=== PATIENT | female | born 1965 | race Caucasian/White ===

== ENCOUNTER 2023-07-16 18:36 | Observation (INO) ==
[2023-07-16] MEDS ORDERED: Lactated Ringers 1000 ml BAG 1,000 ML IV ONE (18:53)
[2023-07-16] MEDS ORDERED: Morphine 4 MG/ML VIAL (1 ml) IV ONE (18:53)
[2023-07-16 19:06] LABS: Hematocrit 39.2 % (35-45); Hemoglobin 13.6 g/dL (11.5-14.3); Mean Corpuscular Hemoglobin 32.8 pg (27-33); Mean Corpuscular Hgb Conc 34.8 g/dL (31-36); Mean Corpuscular Volume 94.2 fL (80-97); Mean Platelet Volume 10.7 fL (7.5-11.2); Platelet Count 130 10^3/uL (150-450); Red Blood Count 4.16 10^6/uL (3.63-4.92); Red Cell Distribution Width 12.5 % (12-17); White Blood Count 12.4 10^3/uL (3.8-11.8)
[2023-07-16 19:23] LABS: Albumin 4.1 g/dL (3.2-5.2); Albumin/Globulin Ratio 1.4 (1-3); C Reactive Protein 110.36 mg/L (<8.01); Calcium 8.8 mg/dL (8.6-10.3); Creatinine, Serum 0.76 mg/dL (0.51-0.95); Potassium 3.2 mmol/L (3.5-5.0); Total Bilirubin 0.9 mg/dL (0.2-1.0); Total Protein 7.1 g/dL (6.4-8.9); eGFR CKD-EPI 89.7 (>60)
[2023-07-16 19:27] LABS: ABS Basophils 0.1 10^3/uL (0.0-0.1); ABS Lymphocytes 0.5 10^3/uL (1.0-4.8); ABS Monocytes 1.1 10^3/uL (0.0-0.9); ABS Neutrophils 10.6 10^3/uL (1.5-7.6); Eosinophil % 0.3 %; Lymphocyte % 4.4 %
[2023-07-16] MEDS ORDERED: Iohexol 350 (CONTRAST) 500 ML MDV IV ONE (21:38)
[2023-07-16] MEDS ORDERED: Piperacillin/Tazobac 3.375 BAG 3.375 GM/100 ML BAG IV ONE (22:34)
[2023-07-16] MEDS ORDERED: NS 0.9% 1000 ml BAG 1,000 ML IV ONE (22:44)
[2023-07-16] MEDS ORDERED: Ondansetron 4 mg VIAL 2 MG/ML 2 ml VIAL IV PRN (23:49)
[2023-07-16] MEDS ORDERED: fentaNYL 100 mcg/2 ml 50 MCG/ML VIAL IV PRN (23:49)
[2023-07-16] MEDS ORDERED: HYDROmorphone 1 MG/1 ML SYRINGE IV PRN (23:49)
[2023-07-16] MEDS ORDERED: Naloxone 0.4 mg VIAL 0.4 mg/ml 1 ml VIAL IV PRN (23:49)
[2023-07-16] MEDS ORDERED: fentaNYL 100 mcg/2 ml 50 MCG/ML VIAL ONE (23:58)
[2023-07-16] MEDS ORDERED: HYDROmorphone 0.5 MG/0.5 ML SYRINGE ONE ×2 (23:58→23:59)
[2023-07-16] MEDS ORDERED: Rocuronium 50 mg VIAL 10 mg/ml 5 ml VIAL (50 mg) ONE (23:58)
[2023-07-17] MEDS ORDERED: Propofol 10 MG/ML 20 ML BTL ONE
[2023-07-17] MEDS ORDERED: Rocuronium 50 mg VIAL 10 mg/ml 5 ml VIAL (50 mg) IV ONE
[2023-07-17] MEDS ORDERED: Dexamethasone IV 4 MG/ML VIAL 1 ml VIAL ONE
[2023-07-17] MEDS ORDERED: fentaNYL 100 mcg/2 ml 50 MCG/ML VIAL IV ONE
[2023-07-17] MEDS ORDERED: HYDROmorphone 0.5 MG/0.5 ML SYRINGE IV ONE ×2
[2023-07-17] MEDS ORDERED: Lidocaine 2% PF 5 ML VIAL ONE
[2023-07-17] MEDS ORDERED: Lidocaine 1% w EPI 1:100,000 MDV 20 ML VIAL ONE (00:11)
[2023-07-17] MEDS ORDERED: Bupivacaine 0.5% 50 ML MDV VIAL ONE (00:13)
[2023-07-17] MEDS ORDERED: oxyCODONE/Acetamin 5/325 mg TAB PO PRN (02:02)
[2023-07-17] MEDS ORDERED: Ondansetron 4 mg VIAL 2 MG/ML 2 ml VIAL IV PRN (02:02)
[2023-07-17] MEDS ORDERED: Ondansetron 4 mg VIAL 2 MG/ML 2 ml VIAL ONE ×2 (02:30)
[2023-07-17] MEDS ORDERED: NS 0.9% 500 ml BAG 500 ML IV SCH ×3 (03:00→10:23)
[2023-07-17] MEDS: Piperacillin/Tazobac 3.375 BAG 3.375 GM/100 ML BAG IV SCH ×3 (04:22→20:16)
[2023-07-17] MEDS: PREDNISOLONE 1% LEFT EYE SCH ×2 (11:44→20:22)
[2023-07-17] MEDS: PTO:Loteprednol 0.5% OPH.SUSP(NF) 5 ML BTL RIGHT EYE SCH (11:45)
[2023-07-18] MEDS: Piperacillin/Tazobac 3.375 BAG 3.375 GM/100 ML BAG IV SCH ×2 (04:11→11:54)
[2023-07-18] MEDS: PREDNISOLONE 1% LEFT EYE SCH (09:58)
[2023-07-18 10:17] VITALS: BP 111/65
[2023-07-18] MEDS: PTO:Loteprednol 0.5% OPH.SUSP(NF) 5 ML BTL RIGHT EYE SCH (10:17)
[2023-07-18] MEDS ORDERED: PTO:Loteprednol 0.5% OPH.SUSP(NF) 5 ML BTL RIGHT EYE SCH (21:00)
== END 2023-07-18 13:00 | disposition home or self-care (01) ==
LOC: ED 18:36 → SSU 07-17 00:26 → OR 07-17 00:50
PROVIDERS: ADMIT Surgery; ATTEND Surgery